=== PATIENT | female | born 1975 | race African-American/Black ===

== ENCOUNTER 2021-08-16 16:54 | Emergency (ER) | payer BC, SELFPAY ==
[2021-08-16 17:02] VITALS: BP 126/93; PULSE 94; RESP 18; TEMP 36.7; O2SAT 100
--- NOTE | 2021-08-16 21:35 | PC.NURSE ---
Patient called back to triage for repeat VS, no answer, not seen in the waiting room.
--- NOTE | 2021-08-16 21:41 | PC.NURSE ---
Patient called again, no answer and not seen in waiting room.
== END 2021-08-17 03:14 | disposition left against medical advice (07) ==
LOC: ANHED 21:51
DX: R51.9 Headache, unspecified (principal)
CPT/HCPCS: 99199

== ENCOUNTER 2021-11-01 01:57 | Emergency (ER) | payer BC, SELFPAY ==
[2021-11-01 02:03] VITALS: BP 149/96; PULSE 84; RESP 18; TEMP 36.6; O2SAT 100
[2021-11-01 04:01] VITALS: BP 104/79; BP 121/76; PULSE 72; PULSE 78; RESP 15; TEMP 36.8; O2SAT 100
[2021-11-01] MEDS: KETOROLAC (*BKC) 60 MG/2 ML VIAL IM (05:01)
--- NOTE | 2021-11-01 06:05 | ED.GENADULT ---
HPI - General Adult General Chief complaint: Weakness Stated complaint: lower iron levels Time Seen by Provider: 11/01/21 04:18 Source: patient and RN notes reviewed Mode of arrival: ambulatory Limitations: no limitations History of Present Illness HPI narrative: This is a 46 year old female who presents for evaluation of low iron. She states she has felt fatigue for several days. She had labs drawn on 10/22/21 and she was found to have low iron and ferritin. She also reports frontal throbbing headache with chronic sinus congestion. She also reports she tested negative for covid on that day. She has come to ER thinking she needs a blood transfusion. She denies chest pain, shortness of breath, cough, nausea, vomiting, abdominal pain or fever. She denies blurred vision or focal deficits. She denies any melena or bleeding. She has history of hysterectomy Related Data Home Medications Medication Instructions Recorded Confirmed lisinopril 5 mg PO DAILY 11/01/21 Allergies Allergy/AdvReac Type Severity Reaction Status Date / Time No Known Allergies Allergy Verified 11/01/21 04:05 Review of Systems Review of Systems: All systems reviewed & are unremarkable except as noted in HPI and below PMFSH Past Medical History Medical History (Updated 11/01/21 @ 06:10 by Lorraine Castillo MD) Anemia Surgical History Surgical History (Updated 11/01/21 @ 06:08 by Lorriane Castillo MD) History of hysterectomy Social History Social History (Updated 11/01/21 @ 06:08 by Lorraine Castillo MD) Smoking status: Never smoker Exam Narrative: GENERAL: Well-appearing, well-nourished, and in no acute distress. HEAD: Normocephalic, atraumatic EYES: PERRLA and EOMI, conjunctiva clear without discharge EARS: TM's clear bilaterally without erythema or dullness NOSE: Nares clear, no rhinorrhea or epistaxis THROAT:Mucous membranes moist, Oropharynx normal without erythema, exudate, peritonsillar swelling or fluctuance NECK: Supple, without lymphadenopathy or mass RESPIRATORY: No respiratory distress, Airway patent, Respirations non-labored, Clear to auscultation without rales, rhonchi or wheeze HEART: Regular rate and rhythm. No murmur heard. Normal peripheral pulses. ABDOMEN: Soft, nontender, nondistended, normal active bowel sounds. No masses. No rebound or guarding, No organomegaly. EXTREMITIES: No edema, normal strength with full range of motion. SKIN: Warm, dry, normal color without rash NEURO: Alert and oriented x3. CN 2-12 grossly intact. No focal deficits. PSYCH: Normal mood and affect. Course Reevaluation(s) Reevaluation #1: Patient states she feels better. Vitals are normal. I reviewed her labs from 10/22. She had normal BMP, her hemoglobin was 10.2. She denies any bleeding or melena. Date: 11/01/21 Time: 06:08 Vital Signs Vital signs: Vital Signs Temperature 97.8 F 11/01/21 02:03 Pulse Rate 84 11/01/21 02:03 Respiratory Rate 18 11/01/21 02:03 Blood Pressure 149/96 H 11/01/21 02:03 Pulse Oximetry 100 11/01/21 02:03 Temperature 98.2 F 11/01/21 04:01 Pulse Rate 78 11/01/21 04:01 Respiratory Rate 15 11/01/21 04:01 Blood Pressure 104/79 11/01/21 04:01 Pulse Oximetry 100 11/01/21 04:01 Medical Decision Making Vital Signs Vital Signs: Vital Signs Temperature 97.8 F 11/01/21 02:03 Pulse Rate 84 11/01/21 02:03 Respiratory Rate 18 11/01/21 02:03 Blood Pressure 149/96 H 11/01/21 02:03 Pulse Oximetry 100 11/01/21 02:03 Temperature 98.2 F 11/01/21 04:01 Pulse Rate 78 11/01/21 04:01 Respiratory Rate 15 11/01/21 04:01 Blood Pressure 104/79 11/01/21 04:01 Pulse Oximetry 100 11/01/21 04:01 Discharge Plan Discharge Clinical Impression: Headache Qualifiers: Headache type: tension-type Patient Disposition: Home, Self-Care Condition: Stable Instructions: Antibiotic Form, Acute Headache (ED), Fatigue (ED)
== END 2021-11-01 06:38 | disposition home or self-care (01) ==
PROVIDERS: Emergency Provider General Practice
DX: G44.209 Tension-type headache, unspecified, not intractable (principal); Z86.2 Personal history of diseases of the blood and blood-forming organs and certain disorders involving the immune mechanism
CPT/HCPCS: 96372; 99283; J1885

== ENCOUNTER 2022-02-25 04:22 | Emergency (ER) | payer BC, SELFPAY ==
[2022-02-25 04:32] VITALS: BP 139/95; PULSE 96; RESP 18; O2SAT 100
--- NOTE | 2022-02-25 04:36 | ED.SKABFB ---
HPI - Skin/Abscess/Foreign Bdy General Chief complaint: Skin/Abscess/Foreign Body Stated complaint: feels like something in her throat Time Seen by Provider: 02/25/22 04:27 Source: patient History of Present Illness HPI narrative: Patient presents with a sore throat. She has had congestion for the couple days tonight she woke up from sleep coughing had pain with swallowing and felt like something was in her throat. She looked in her back for follow-up and thought she saw some abnormal tissue she looked up her symptoms online and was concerned maybe she had throat cancer so she came to the ER for evaluation. His reports achiness in her throat no radiation worse with swallowing constant. She denies any fevers. With a history of strep throat episodes. Related Data Home Medications Medication Instructions Recorded Confirmed lisinopril 5 mg PO DAILY 11/01/21 Allergies Allergy/AdvReac Type Severity Reaction Status Date / Time No Known Allergies Allergy Verified 11/01/21 04:05 Review of Systems Review of Systems: CONSTITUTIONAL: Denies fever, chills, or sweats. EYES: Denies visual changes, redness, or discharge. ENT: Denies rhinorrhea, congestion, sore throat, or otalgia. CARDIOVASCULAR: Denies chest pain, palpitations, or edema. RESPIRATORY: Denies cough or dyspnea. GASTROINTESTINAL: Denies abdominal pain, nausea, vomiting, or diarrhea. GENITOURINARY: Denies dysuria or hematuria. SKIN: Denies rash or itching. MUSCULOSKELETAL: Denies back pain, joint pain, or myalgia. NEUROLOGIC: Denies headache, numbness, dizziness, or weakness. PSYCHIATRIC: Denies anxiety or depression. All systems reviewed & are unremarkable except as noted in HPI and below PMFSH Past Medical History Medical History Anemia Surgical History Surgical History History of hysterectomy Social History Social History Smoking status: Never smoker Exam Narrative: GENERAL: Well-appearing, well-nourished, and in no acute distress. HEAD: Normocephalic, atraumatic. EYES: PERRLA and EOMI. ENT: Nares clear, no rhinorrhea or epistaxis. Mucous membranes moist. Erythema in the posterior pharynx mild edema no uvula deviation no airways compromise. Tenderness to palpation on the right anterior NECK: Supple. Lymphadenopathy noted on the right anterior cervical chain no JVD CHEST: Clear to auscultation. No respiratory distress. No wheezes rales or rhonchi HEART: Regular rate and rhythm. No murmur heard. Normal peripheral pulses. ABDOMEN: Soft, nontender, nondistended, normal active bowel sounds. EXTREMITIES: Normal range of motion. No edema. SKIN: Warm, dry, no rash. NEURO: No focal deficits. Alert and oriented x3. PSYCH: Normal mood and affect. Course Vital Signs Vital signs: Vital Signs Pulse Rate 96 02/25/22 04:32 Respiratory Rate 18 02/25/22 04:32 Blood Pressure 139/95 H 02/25/22 04:32 Pulse Oximetry 100 02/25/22 04:32 Pulse Rate 96 02/25/22 04:32 Respiratory Rate 18 02/25/22 04:32 Blood Pressure 139/95 H 02/25/22 04:32 Pulse Oximetry 100 02/25/22 04:32 MDM - Skin/Abscess/Foreign Bdy MDM Narrative Medical decision making narrative: H&P as above, vss, pt looks clinically well, exam with erythema in the posterior pharynx, labs/img considered, symptomatic relief available as needed, on reevaluation pt continues to looks clinically well. Patient declined strep swab and was reassured by exam suspect pharyngitis. May be viral., dns airway compromise, peritonsillar abscess. There is no abnormal tissue growth or mass appreciated on exam. plan to tx/monitor as op w/ pcm f/u findings/plan discussed with pt, pt agree/comfortable with plan, return precautions given Discharge Plan Discharge Clinical Impression: Pharyngitis Qualifiers: Pharyngitis/tonsillitis et
== END 2022-02-25 04:53 | disposition home or self-care (01) ==
LOC: ANHED 04:41
PROVIDERS: Emergency Provider Emergency Medicine
DX: J02.9 Acute pharyngitis, unspecified (principal); Z86.2 Personal history of diseases of the blood and blood-forming organs and certain disorders involving the immune mechanism; Z90.710 Acquired absence of both cervix and uterus; Z79.899 Other long term (current) drug therapy
CPT/HCPCS: 99281